=== PATIENT | female | born 1990 | race Caucasian/White ===

== ENCOUNTER → 2017-09-16 | Outpatient (CLI) | payer OTHER | LOC: BMCIMAGING 09:59 | PROVIDERS: ATTEND Internal Medicine Rheumatology | DX: Z13.820 Encounter for screening for osteoporosis (principal) ==

== ENCOUNTER → 2018-09-11 | Outpatient (CLI) | payer OTHER | LOC: BMCIMAGING 08:10 | PROVIDERS: ATTEND Internal Medicine Rheumatology | DX: R89.9 Unspecified abnormal finding in specimens from other organs, systems and tissues (principal) ==